=== PATIENT | female | born 1945 | race Caucasian/White ===

== ENCOUNTER → 2016-05-09 | Outpatient (CLI) | payer MEDICARE, OTHER ==
[~2016-05-09] MED LIST: ADVIL200 MG PO; PERCOCET 5-3251 EACH PO
== END | disposition disaster alternative care site (69) ==
LOC: GRAD 12:16
DX: R91.8 Other nonspecific abnormal finding of lung field (principal); J47.9 Bronchiectasis, uncomplicated
CPT/HCPCS: Q9967

== ENCOUNTER → 2016-08-29 | Outpatient (CLI) | payer MEDICARE, OTHER ==
[2016-08-29 12:11] LABS: ALBUMIN 3.7 gm/dL (3.5-5.0); ALK PHOS 121 IU/L (33-138); ALT 23 IU/L (12-78); AST 18 IU/L (10-40); BLOOD UREA NITROGEN 11 mg/dL (6-24); CALCIUM 8.6 mg/dL (8.5-10.5); CHLORIDE 106 mMol/L (96-110); CO2 27 mMol/L (22-32); CREATININE 0.6 mg/dL (0.5-1.1); SODIUM 140 mMol/L (135-145); TOTAL BILIRUBIN 0.5 mg/dL (0.0-1.5); TOTAL PROTEIN 7.8 g/dL (6.0-8.4)
== END | disposition disaster alternative care site (69) ==
LOC: GLAB 11:27
PROVIDERS: Family Medicine
DX: R91.8 Other nonspecific abnormal finding of lung field (principal)